=== PATIENT | male | born 1995 | race American Indian/Alaskan Native ===

== ENCOUNTER 2019-08-28 22:24 | Emergency (ER) | payer OTHER ==
[2019-08-28] MEDS ORDERED: IBUPROFEN ORAL LIQD 100 MG/5 ML ORAL.LIQD PO ONE (23:08)
[2019-08-29] MEDS ORDERED: dexAMETHasone 4 MG/ML VIAL PO ONE (01:11)
[2019-08-29] MEDS ORDERED: PENICILLIN G BENZATHINE 1.2 MILLION UNIT/2 ML INJ IM STA (01:11)
--- NOTE | 2019-08-29 01:15 | Emergency Department Report ---
ED ENT HPI - General Chief complaint: Sore Throat Stated complaint: SOB/SORE THROAT Time Seen by Provider: 08/29/19 01:10 Source: patient Mode of arrival: Ambulatory Limitations: No Limitations - History of Present Illness MD complaint: sore throat -: days(s) (3) Severity: moderate Quality: dull Consistency: constant Worsens with: swallowing, position, movement Associated Symptoms: sore throat. denies: gum swelling, toothache, tinnitus, hearing loss - Related Data Previous Rx's Medication Instructions Recorded Last Taken Type Lidocaine Viscous 2% 10 ml MM Q3HR PRN #300 udc 08/29/19 Unknown Rx Allergies Allergy/AdvReac Type Severity Reaction Status Date / Time No Known Allergies Allergy Verified 08/28/19 22:45 ED Dental HPI - General Chief complaint: Sore Throat Stated complaint: SOB/SORE THROAT Time Seen by Provider: 08/29/19 01:10 Source: patient Mode of arrival: Ambulatory Limitations: No Limitations - Related Data Previous Rx's Medication Instructions Recorded Last Taken Type Lidocaine Viscous 2% 10 ml MM Q3HR PRN #300 udc 08/29/19 Unknown Rx Allergies Allergy/AdvReac Type Severity Reaction Status Date / Time No Known Allergies Allergy Verified 08/28/19 22:45 ED Review of Systems ROS: Stated complaint: SOB/SORE THROAT Other details as noted in HPI Comment: All other systems reviewed and negative ED Past Medical Hx - Past Medical History Previous Medical History?: No - Surgical History Past Surgical History?: No - Social History Smoking Status: Current Every Day Smoker Substance Use Type: Alcohol, Marijuana - Medications Home Medications: Home Medications Medication Instructions Recorded Confirmed Last Taken Type Lidocaine Viscous 2% 10 ml MM Q3HR PRN #300 ud 08/29/19 Unknown Rx ED Physical Exam - General Limitations: No Limitations General appearance: alert, in no apparent distress - Head Head exam: Present: atraumatic, normocephalic - Eye Eye exam: Present: normal appearance, PERRL, EOMI - ENT ENT exam: Present: mucous membranes moist, other (Pharynx red swollen with scant exudate. Mild muffling to the voice and increased saliva but no drooling.) - Neck Neck exam: Present: normal inspection, lymphadenopathy (Tonsillar region) - Respiratory Respiratory exam: Present: normal lung sounds bilaterally. Absent: respiratory distress, wheezes, chest wall tenderness, accessory muscle use, decreased breath sounds - Cardiovascular Cardiovascular Exam: Present: regular rate, normal rhythm. Absent: systolic murmur, diastolic murmur, rubs, gallop - GI/Abdominal GI/Abdominal exam: Present: soft, tenderness, normal bowel sounds. Absent: guarding, rebound, hypoactive bowel sounds, organomegaly, mass - Rectal Rectal exam: Present: deferred - Extremities Exam Extremities exam: Present: normal inspection - Back Exam Back exam: Present: normal inspection - Neurological Exam Neurological exam: Present: alert, oriented X3 - Psychiatric Psychiatric exam: Present: normal affect, normal mood - Skin Skin exam: Present: warm, dry, intact, normal color. Absent: rash Critical care attestation.: If time is entered above; I have spent that time in minutes in the direct care of this critically ill patient, excluding procedure time. ED Disposition Clinical Impression: Exudative pharyngitis Disposition: DC- TO HOME OR SELFCARE Is pt being admited?: No Does the pt Need Aspirin: No Condition: Stable Instructions: Pharyngitis (ED), Strep Throat (ED) Prescriptions: Lidocaine Viscous 2% 10 ml MM Q3HR PRN #300 udc PRN Reason: Sore Throat Referrals: PRIMARY CARE, [Primary Care Provider] - 3-5 Days [facility] [Provider Group] - 3-5 Days
[2019-08-29] MEDS ORDERED: PENICILLIN G BENZATHINE 1.2 MILLION UNIT/2 ML INJ IM ONE (01:36)
[2019-08-29] MEDS ORDERED: dexAMETHasone 4 MG/ML VIAL ONE (01:36)
[2019-08-29] MEDS ORDERED: IBUPROFEN 800 MG TAB ONE (01:36)
[2019-08-29 02:11] VITALS: BP 173/97
== END 2019-08-29 02:10 | disposition home or self-care (01) ==
LOC: ED 22:24
DX: J02.9 Acute pharyngitis, unspecified (principal)
CPT/HCPCS: 87116; 87400; 87430; 96372; 99283; J0561; J1100